=== PATIENT | male | born 1960 | race Caucasian/White ===

== ENCOUNTER 2016-11-18 10:44 | Emergency (ER) | payer OTHER ==
[~2016-11-18] VITALS: Ht 165.1 cm; Wt 62.6 kg
--- NOTE | 2016-11-18 11:35 | ED HEADACHE COMPLAINT ---
History of Present Illness General Chief Complaint: General Adult Stated Complaint: L SIDE ABD TIGHTNESS? Source: patient Exam Limitations: no limitations Allergies Coded Allergies: NO KNOWN ALLERGIES (12/16/13) Reconcile Medications No Known Home Medications Triage Note: STATES ABOUT A MONTH AGO HE STARTED GETTING BURRED VISION AND HEADACHES. STATES HE GOT NEW GLASSES THINKING IT WOULD HELP BUT IT DIDN'T. STATES HE SAW AN OPHTHAMOLOGIST WHO NOTED A BUMP ON HIS RETINA ? MACULAR DEGENERATION. EYE MD STATES IT WOULDN'T CAUSE THE H/A WHICH ARE GETTING WORSE Triage Nurses Notes Reviewed? yes HPI: This patient is a 56-year-old male who presented to the emergency department today accompanied by his mother for evaluation of headache, blurry vision, and left-sided chest tightness. The patient reported that approximately one month ago he started to have blurry vision in his right eye which she attributed to needing new glasses. The patient tried 2 different types of lenses and was also referred to an manager transit who told him that he did have a, "bump on my retina," but nothing else that would be causing his symptoms. The patient also started having right-sided headaches that come and go on their own and he gets them regularly. They are nonradiating and get up to a 6 out of 10. The patient denied any falls or head strikes. He reported that this morning he woke up with intermittent, left-sided chest tightness. He reported, "it's not pain, just tight." He reported that it is coming going on its own without any palliative or provoking factors. He denied any difficulty breathing, neck pain, abdominal pain, nausea, vomiting, back pain, numbness or tingling in his extremities, arm pain, jaw pain, or any other associated symptoms. ([place],BRUCE) Vital Signs & Intake/Output Vital Signs & Intake/Output Vital Signs Date Time Temp Pulse Resp B/P B/P Pulse O2 O2 Flow FiO2 Mean Ox Delivery Rate 11/18 1256 96 11/18 1255 96.6 70 20 138/81 96 Room Air ED Intake and Output 11/19 0000 11/18 1200 Intake Total Output Total 100 Balance -100 Output, Urine 100 Patient 138 lb Weight Past History Travel History Traveled to [place] past 21 day No Medical History Any Pertinent Medical History? see below for history Tetanus Vaccine: 12/17/13 Surgical History Surgical History: non-contributory Psychosocial History What is your primary language Iraqi Tobacco Use: Current Daily Use Daily Tobacco Use Amount/Type: => 5 Cigarettes daily ETOH Use: occasional use Illicit Drug Use: denies illicit drug use Family History Hx Contributory? No (BRUCE FREEDMAN PA-C) Review of Systems Review of Systems Constitutional: Reports: no symptoms. Eyes: Reports: see HPI. Ears, Nose, Throat, Mouth: Reports: no symptoms. Respiratory: Reports: no symptoms. Cardiovascular: Reports: see HPI. Gastrointestinal/Abdominal: Reports: no symptoms. Musculoskeletal: Reports: no symptoms. Skin: Reports: no symptoms. Neurological/Psychological: Reports: see HPI. All Other Systems: Reviewed and Negative (BRUCE FREEDMAN PA-C) Physical Exam Physical Exam Cranial Nerves: normal hearing, normal speech, PERRL Comments: Well-developed well-nourished person in no acute distress HEENT: Normal EENT exam, head normocephalic/atraumatic with no bony deformities/ step-offs of the skull, no tenderness to palpation over the scalp PERRLA bilaterally Neck: Supple. No lymphadenopathy. No midline tenderness. Full range of motion. No meningeal signs Back: Normal gait. Normal inspection Cardiovascular: Regular rate and rhythm with no murmurs, rubs, or gallops. No JVD or carotid bruits Respiratory: Chest nontender. No respiratory distress. Breath sounds clear to auscultation bilaterally Abdomen: Soft, nontender and nondistended with no rebound or guarding. No peritoneal signs Extremity: No edema, no calf tenderness to palpation, normal and equal pulses. Neuro: Alert oriented x3, cranial nerves II through XII grossly intact. Skin: No appreciable rash on exposed skin, skin is warm and dry. Psych: Mood and affect is normal Core Measures Severe Sepsis Present: No Septic Shock Present: No (BRUCE FREEDMAN PA-C) Progress Differential Diagnosis: carotid dissection, cav sinus thromb, cluster INGRAM, encephalitis, IC mass/tumor, intracranial Hem., meningitis, migraine INGRAM, musculoskeletal pain, sinusitis, SSS thrombosis, subarach. Hem., tension INGRAM, temporal arteritis, TMJ syndrome, ACS, PE Plan of Care: Orders Procedure Date/time Status THYROID STIMULATING HORMONE 11/18 1130 Complete TROPONIN LEVEL 11/18 1130 Complete LIPID PANEL 11/18 1130 Complete FREE T4 11/18 1130 Complete WESTERGREN SED RATE 11/18 1130 Complete COMPREHENSIVE METABOLIC PANEL 11/18 1130 Complete CBC WITHOUT DIFFERENTIAL 11/18 113 Complete EKG 11/18 113 Active Laboratory Tests 11/18/16 1159: Anion Gap 13, Estimated GFR > 60, BUN/Creatinine Ratio 15.0, Glucose 103 H, Calcium 9.5, Total Bilirubin 0.6, AST 20, ALT 30, Alkaline Phosphatase 71, Troponin I < 0.01, Total Protein 7.5, Albumin 4.5, Globulin 3.0, Albumin/ Globulin Ratio 1.5, Triglycerides 100, Cholesterol 185, LDL Cholesterol, Calc 116, HDL Cholesterol 49, Cholesterol/HDL Ratio 4, TSH 2.140, Free T4 1.04, CBC w Diff NO MAN DIFF REQ, RBC 4.59 L, MCV 98.3 H, MCH 33.3 H, RDW 13.3, MPV 8.9, Gran % 62.5, Lymphocytes % 30.6, Monocytes % 5.8, Eosinophils % 0.7, Basophils % 0.4, Absolute Granulocytes 6.3, Absolute Lymphocytes 3.1, Absolute Monocytes 0.6 , Absolute Eosinophils 0.1, Absolute Basophils 0, PUBS MCHC 33.9, ESR Westergren 14 H Diagnostic Imaging: Viewed by Me: CT Scan. Discussed w/RAD: CT Scan. Radiology Impression: PATIENT: EDIN RODRIGUEZ PRESENT AGE: 56 PATIENT ACCOUNT NO: [id number] : 58 LOCATION: [facility] ([place]) ORDERING PHYSICIAN: BRUCE FREEDMAN PA-C SERVICE DATE: 11/18/16 EXAM TYPE: CAT - CT HEAD WO IV CONTRAST EXAMINATION: CT HEAD WITHOUT CONTRAST CLINICAL INFORMATION: Right-sided blurry vision, right-sided headache COMPARISON: 2013 CT scan TECHNIQUE: Contiguous axial imaging was performed from the skull base to vertex without intravenous administration of contrast. DLP: 600.71 mGy- cm FINDINGS: There is no evidence of acute intracranial hemorrhage or territorial infarction. No abnormal mass effect or midline shift is seen. Mendez to white matter differentiation is well preserved. No extra-axial fluid collections are identified. The ventricles are normal in size. There is no abnormal attenuation within the brain parenchyma. The osseous structures and soft tissues are normal. The mastoid air cells and visualized portions of the paranasal sinuses are well aerated. IMPRESSION: No acute intracranial hemorrhage or CT sign of acute ischemia. DICTATED BY: MARCELA LYNCH MD DATE/TIME DICTATED :11/18/161206 MUSHROOM GROWER:CURT DATE/TIME TRANSCRIBED:11/18/161206 CONFIDENTIAL, DO NOT COPY WITHOUT APPROPRIATE AUTHORIZATION. < Electronically signed in Other Vendor System> SIGNED BY: MARCELA LYNCH MD 11/18/16 1231 Initial ED EKG: normal axis, normal intervals, normal sinus rhythm, no ST T wave changes, 66 BPM Comments: 11/18/2016 2:10:58 PM: The patient's bedside to update him on imaging and laboratory studies. ESR 14. No increased white blood cell count. Troponin less than 0.01. EKG unremarkable. No acute findings on head CT. This patient did have a potassium level of 5.4. He has been given Kayexalate here in the emergency department. This patient has an appointment with his primary care physician scheduled for tomorrow at which time he was instructed to have repeat blood work to make sure that this level is decreasing. Told him to return for any worsening symptoms or concerns. This patient will be given an outpatient neurologist for his symptoms. (BRUCE FREEDMAN PA-C) Departure Departure Disposition: HOME OR SELF CARE Condition: Stable Clinical Impression Primary Impression: Headache Qualifiers: Headache type: unspecified Headache chronicity pattern: unspecified pattern Intractability: not intractable Qualified Code: R51 - Headache Referrals: BRENNAN ROSA,EMMANUEL SANCHEZ APRN (PCP/Family) Additional Instructions: Please follow-up with your primary care physician as scheduled for tomorrow; at that time, please have your potassium level rechecked as it was high to 5.4 today. You were given Kayexalate here in the emergency department to lower this level. Please follow-up with the neurologist whose information has been provided to you in this packet for further evaluation of your symptoms. Return immediately for any worsening symptoms or concerns. Departure Forms: Customer Survey General Discharge Information Prescriptions: Current Visit Scripts No Known Home Medications (BRUCE FREEDMAN PA-C) PA/COUNSELLING PSYCHOLOGIST Co-Sign Statement Statement: ED Attending supervision documentation- [] I saw and evaluated the patient. I have also reviewed all the pertinent lab results and diagnostic results. I agree with the findings and the plan of care as documented in the PA's/COUNSELLING PSYCHOLOGIST's documentation. [X] I have reviewed the ED Record and agree with the PA's/COUNSELLING PSYCHOLOGIST's documentation. [] Additions or exceptions (if any) to the PAs/COUNSELLING PSYCHOLOGIST's note and plan are summarized below: [] (VOLODYMYR AVILES DO)
[2016-11-18 12:16] LABS: ABSOLUTE BASOPHIL COUNT 0 /CUMM (0.0-0.2); ABSOLUTE EOSINOPHIL COUNT 0.1 /CUMM (0.0-0.7); ABSOLUTE GRANULOCYTE CT 6.3 /CUMM (1.4-6.5); ABSOLUTE LYMPH COUNT 3.1 /CUMM (1.2-3.4); ABSOLUTE MONOCYTE COUNT 0.6 /CUMM (0.10-0.60); BASOPHIL % 0.4 % (0.0-2.0); EOSINOPHIL % 0.7 % (0-5); GRANULOCYTE % 62.5 % (42.2-75.2); HEMATOCRIT 45.2 % (42-52); MEAN CORPUSCULAR HGB 33.3 PG (27.0-31.0); MEAN CORPUSCULAR HGB CONC 33.9 G/DL (33.0-37.0); MEAN CORPUSCULAR VOLUME 98.3 FL (80.0-94.0); MEAN PLATELET VOLUME 8.9 FL (7.4-10.4); PLATELET COUNT 180 /CUMM (130-400); RBC DISTRIBUTION WIDTH 13.3 % (11.5-14.5); RED BLOOD CELL CT 4.59 /CUMM (4.70-6.10)
--- NOTE | 2016-11-18 12:31 | CT SCAN REPORT ---
EXAMINATION: CT HEAD WITHOUT CONTRAST CLINICAL INFORMATION: Right-sided blurry vision, right-sided headache COMPARISON: 12/16/2013 CT scan TECHNIQUE: Contiguous axial imaging was performed from the skull base to vertex without intravenous administration of contrast. DLP: 600.71 mGy-cm FINDINGS: There is no evidence of acute intracranial hemorrhage or territorial infarction. No abnormal mass effect or midline shift is seen. Mendez to white matter differentiation is well preserved. No extra-axial fluid collections are identified. The ventricles are normal in size. There is no abnormal attenuation within the brain parenchyma. The osseous structures and soft tissues are normal. The mastoid air cells and visualized portions of the paranasal sinuses are well aerated. IMPRESSION: No acute intracranial hemorrhage or CT sign of acute ischemia.
[2016-11-18 12:55] VITALS: BP 138/81
== END 2016-11-18 14:45 ==
LOC: ERH 10:44
PROVIDERS: Physician Assistant
DX: R51 Headache (principal)
CPT/HCPCS: 93005; 93010